=== PATIENT | male | born 1975 | race Caucasian/White ===

== ENCOUNTER 2019-08-15 10:50 | Emergency (ER) | payer OTHER ==
[~2019-08-15] VITALS: Ht 172.7 cm; Wt 65.8 kg
[~2019-08-15 10:50] MED LIST: TYLENOL325 MG PO
[2019-08-15] MEDS ORDERED: KEFLEX500 MG PO (12:56)
== END 2019-08-15 13:05 | disposition home or self-care (01) ==
LOC: ED 10:50
DX: S61.251A Open bite of left index finger without damage to nail, initial encounter (principal); S61.253A Open bite of left middle finger without damage to nail, initial encounter; L03.012 Cellulitis of left finger; F17.200 Nicotine dependence, unspecified, uncomplicated; Z88.0 Allergy status to penicillin; W55.01XA Bitten by cat, initial encounter
CPT/HCPCS: 73130; 85025; 90471; 90715; 96374; 99283-25; 99406; J0690

== ENCOUNTER 2024-07-01 19:25 | Emergency (ER) | payer OTHER ==
[~2024-07-01] VITALS: Ht 172.7 cm; Wt 63.0 kg
[~2024-07-01 19:25] MED LIST changes: +KEFLEX500 MG PO
[2024-07-01 20:08] VITALS: BP 111/76
[2024-07-03 07:39] LABS: HEPATITIS B SURFACE ANTIBODY <3.10 IU/L (())
[2024-07-03 07:45] LABS: HIV 1,2 COMBO ANTIGEN/ANTIBODY Negative (Negative)
[2024-07-03 09:42] LABS: HEPATITIS C AB CIA INTERP Negative (Negative); HEPATITIS C ANTIBODY CIA INDEX 0.08 IV (())
== END 2024-07-01 20:08 | disposition home or self-care (01) ==
LOC: ED 19:25
PROVIDERS: Family Medicine
DX: S61.232A Puncture wound without foreign body of right middle finger without damage to nail, initial encounter (principal); F17.200 Nicotine dependence, unspecified, uncomplicated; Z88.0 Allergy status to penicillin; W46.1XXA Contact with contaminated hypodermic needle, initial encounter
CPT/HCPCS: 36415; 84460; 86706; 86803; 99283